=== PATIENT | female | born 1985 | race Caucasian/White ===

== ENCOUNTER 2020-02-06 09:42 | Outpatient (CLI) | payer BC | END 2020-02-06 23:59 | disposition home or self-care (01) | LOC: US 09:42 | PROVIDERS: ATTEND Internal Medicine Hematology & Oncology | DX: R91.8 Other nonspecific abnormal finding of lung field (principal); R94.5 Abnormal results of liver function studies | CPT/HCPCS: 71045-TC; 76700-TC ==

== ENCOUNTER 2020-02-12 08:28 | Outpatient (CLI) | payer BC | END 2020-02-12 23:59 | disposition home or self-care (01) | LOC: CT 08:28 | PROVIDERS: ATTEND Internal Medicine Hematology & Oncology | DX: R91.8 Other nonspecific abnormal finding of lung field (principal); K76.89 Other specified diseases of liver | CPT/HCPCS: 71250-TC ==